=== PATIENT | male | born 1975 | race Caucasian/White ===

== ENCOUNTER 2021-05-30 18:06 | Emergency (ER) | payer OTHER ==
[~2021-05-30] VITALS: Ht 188 cm; Wt 108.9 kg
[~2021-05-30 18:06] MED LIST: NOHOMEMEDICATIONS
[2021-05-30 19:35] VITALS: BP 116/76
== END 2021-05-30 19:37 | disposition home or self-care (01) ==
LOC: M.ERS 18:06
DX: S51.811A Laceration without foreign body of right forearm, initial encounter (principal); W45.8XXA Other foreign body or object entering through skin, initial encounter; Y93.89 Activity, other specified; Y92.89 Other specified places as the place of occurrence of the external cause; Y99.8 Other external cause status